=== PATIENT | male | born 1980 | race African-American/Black ===

== ENCOUNTER 2019-05-29 22:30 | Emergency (ER) | payer OTHER ==
[2019-05-29 22:38] VITALS: TEMP 98; BMI 35.7
--- NOTE | 2019-05-29 23:06 | PDOC ---
Attending Attestation - Resident Resident Name: Terrence Manley - ED Attending Attestation I have performed the following: I have examined & evaluated the patient, The case was reviewed & discussed with the resident, I agree w/resident's findings & plan - HPI HPI: 05/29/19 23:05 lightheadedness started this afternoon. 05/29/19 23:34 Pt ate a bagel and a chicken sandwich. 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 - Physicial Exam PE: 05/29/19 23:35 Normal Exam. - Medical Decision Making 05/29/19 23:21 BP is 159/99 05/30/19 02:49 CBC normal Chem hemolyzed; 2nd specimen still pending Pt's CXR has borderline ccardiomegaly. Once chem is back, pt can go and follow with cardiology outpatient. Heart Score/ECG Review - ECG Intrepretation Rhythm: Regular Rhythm - [place]: Normal - P and NC Prominent R with upright T in V1 (true posterior WI): No Delta Wave(s) Present: No WPW: No - QRS Poor R Wave Progression: No Q Wave Present: No - ST and T Early Repolarization: No Non Specific ST-T Wave changes: No Flattened T Waves: No Prolonged Q-T Interval: No - ECG Impressions Normal ECG: Yes Non-specific ST Elevation: No Ischemic Changes: No Bradycardia: Yes
[2019-05-29] MEDS ORDERED: SODIUM CHLORIDE 0.9% 500 ML INFUS.BAG IV ONE (23:08)
[2019-05-29] MEDS ORDERED: amLODIPine BESYLATE 5 MG TABLET (FP) PO ONE (23:22)
--- NOTE | 2019-05-29 23:22 | PDOC ---
History of Present Illness - General Chief Complaint: Lightheaded Stated Complaint: LIGHTHEADED Time Seen by Provider: 05/29/19 22:38 - History of Present Illness Initial Comments: Ash Teran is a 38 y/o male with PMH significant for HTN, on amlodipine 5 mg QD for the past 4 months, presenting today with lightheadedness and feeling like he was going to pass out earlier today. Denies any LOC. Denies fall. Reports decreased hydration. Ate a bagel and sandwich today. Denies any other complaints. Denies nausea/vomiting. Denies fever/chills. Denies chest pain/ shortness of breath. Denies abdominal pain. Denies dysuria/hematuria. He was seen at his PCP's office on last week and was told his BP was slightly low. SocHx: daily smoker PMH: htn FamHx: htn Past History - Past Medical History Allergies/Adverse Reactions: Allergies Allergy/AdvReac Type Severity Reaction Status Date / Time shellfish derived Allergy Verified 05/29/19 22:38 COPD: No HTN: Yes - Psycho Social/Smoking Cessation Hx Smoking History: Current every day smoker Information on smoking cessation initiated: No Review of Systems - Review of Systems Comments:: GENERAL/CONSTITUTIONAL: No fever or chills. No weakness._ HEAD, EYES, EARS, NOSE AND THROAT: No change in vision. No change in hearing. No sore throat._ CARDIOVASCULAR: No chest pain or shortness of breath_ RESPIRATORY: Denies cough, hemoptysis_ GASTROINTESTINAL: No nausea, vomiting, diarrhea or constipation._ GENITOURINARY: No dysuria, frequency, or change in urination._ MUSCULOSKELETAL: No joint or muscle swelling or pain. No neck or back pain._ SKIN: No rash_ NEUROLOGIC: Reports mild headache and lightheadedness. No loss of consciousness , or change in strength/sensation._ ENDOCRINE: No increased thirst. No abnormal weight change_ HEMATOLOGIC/LYMPHATIC: No anemia, easy bleeding, or history of blood clots._ ALLERGIC/IMMUNOLOGIC: No hives or skin allergy._ *Physical Exam - Vital Signs Last Vital Signs Temp Pulse Resp BP Pulse Ox 98.0 F 83 18 159/97 97 05/29/19 22:34 05/29/19 22:34 05/29/19 22:34 05/29/19 22:34 05/29/19 22:34 - Physical Exam GENERAL: Awake, alert, and oriented to person/place/time, in no acute distress_ HEAD: No signs of trauma, normocephalic, atraumatic _ EYES: PERRLA, EOMI, sclera anicteric, conjunctiva clear_ ENT: Hearing grossly normal, nares patent, oropharynx clear without exudates. No uvular deviation. Moist mucosa_ NECK: Normal ROM, supple, no lymphadenopathy, JVD, or masses_ LUNGS: No distress, speaks in full sentences, clear to auscultation bilaterally _ HEART: Regular rate and rhythm, normal S1 and S2, no murmurs appreciated, peripheral pulses normal and equal bilaterally._ ABDOMEN: Soft, nontender, normoactive bowel sounds. No guarding, no rebound. No masses_ EXTREMITIES: Normal inspection, Normal range of motion, no edema. No clubbing or cyanosis_ NEUROLOGICAL: Cranial nerves II through XII grossly intact. Normal speech, normal gait, no focal sensorimotor deficits _ SKIN: Warm, Dry, normal turgor, no rashes or lesions noted_ ED Treatment Course - LABORATORY CBC & Chemistry Diagram: 05/29/19 23:05 05/30/19 02:11 Medical Decision Making - Medical Decision Making 05/29/19 23:21 38M hx of HTN presenting today with lightheadedness and feeling like he was going to pass out. -cbc, cmp -ekg -cxr -fluids 05/30/19 00:58 EKG shows sinus bradycardia with sinus arrhythmia, 58 bpm, no ST elevation/ depression, QTc 414. 05/30/19 02:49 CXR shows mild borderline cardiomegaly. 05/30/19 03:12 Labs reviewed. Laboratory Last Values WBC 7.4 K/mm3 (4.0-10.0) 05/29/19 23:05 RBC 5.90 M/mm3 (4.00-5.60) H 05/29/19 23:05 Hgb 15.6 GM/dL (11.7-16.9) 05/29/19 23:05 Hct 47.4 % (35.4-49) 05/29/19 23:05 MCV 80.3 fl (80-96) 05/29/19 23:05 MCH 26.5 pg (25.7-33.7) 05/29/19 23:05 MCHC 33.0 g/dl (32.0-35.9) 05/29/19 23:05 RDW 15.9 % (11.9-15.9) 05/29/19 23:05 Plt Count 246 K/MM3 (134-434) 05/29/19 23:05 MPV 8.5 fl (7.5-11.1) 05/29/19 23:05 Absolute Neuts (auto) 3.9 K/mm3 (1.5-8.0) 05/29/19 23:05 Neutrophils % 52.9 % (42.8-82.8) 05/29/19 23:05 Lymphocytes % 40.8 % (8-40) H 05/29/19 23:05 Monocytes % 4.9 % (3.8-10.2) 05/29/19 23:05 Eosinophils % 0.6 % (0-4.5) 05/29/19 23:05 Basophils % 0.8 % (0-2.0) 05/29/19 23:05 Nucleated RBC % 0 % (0-0) 05/29/19 23:05 Sodium 140 mmol/L (136-145) 05/30/19 02:11 Potassium 3.7 mmol/L (3.5-5.1) 05/30/19 02:11 Chloride 108 mmol/L (98-107) H 05/30/19 02:11 Carbon Dioxide 29 mmol/L (21-32) 05/30/19 02:11 Anion Gap 3 MMOL/L (8-16) L 05/30/19 02:11 BUN 9.8 mg/dL (7-18) 05/30/19 02:11 Creatinine 1.1 mg/dL (0.55-1.3) 05/30/19 02:11 Est GFR (CKD-EPI)AfAm 98.87 05/30/19 02:11 Est GFR (CKD-EPI)NonAf 85.31 05/30/19 02:11 Random Glucose 99 mg/dL (74-106) 05/30/19 02:11 Calcium 8.1 mg/dL (8.5-10.1) L 05/30/19 02:11 Total Bilirubin 0.4 mg/dL (0.2-1) 05/30/19 02:11 AST 16 U/L (15-37) 05/30/19 02:11 ALT 22 U/L (13-61) 05/30/19 02:11 Alkaline Phosphatase 84 U/L (45-117) 05/30/19 02:11 Total Protein 7.2 g/dl (6.4-8.2) 05/30/19 02:11 Albumin 3.5 g/dl (3.4-5.0) 05/30/19 02:11 Urine Color Yellow 05/30/19 00:30 Urine Appearance Clear 05/30/19 00:30 Urine pH 5.5 (5.0-8.0) 05/30/19 00:30 Ur Specific [place] 1.008 (1.010-1.035) L 05/30/19 00:30 Urine Protein Negative (NEGATIVE) 05/30/19 00:30 Urine Glucose (UA) Negative (NEGATIVE) 05/30/19 00:30 Urine Ketones Negative (NEGATIVE) 05/30/19 00:30 Urine Blood Negative (NEGATIVE) 05/30/19 00:30 Urine Nitrite Negative (NEGATIVE) 05/30/19 00:30 Urine Bilirubin Negative (NEGATIVE) 05/30/19 00:30 Urine Urobilinogen 0.2 mg/dL (0.2-1.0) 05/30/19 00:30 Ur Leukocyte Esterase Negative (NEGATIVE) 05/30/19 00:30 Pt reassessed. Reports improvement. Plan to d/c home with PCP f/u. All questions answered. Return precautions given. Pt verbalized understanding and agreement with plan. Discharge - Discharge Information Problems reviewed: Yes Clinical Impression/Diagnosis: Lightheadedness Condition: Stable Disposition: HOME - Admission No - Follow up/Referral Referrals: Anibal Zaidi MD [Staff Physician] - - Patient Discharge Instructions Patient Printed Discharge Instructions: Treatments for High Blood Pressure: More Than Just Taking a Pill, Recommendations to Help Prevent High Blood Pressure Additional Instructions: Please make a follow up appointment with your primary care doctor. Please follow a low sodium diet to improve your blood pressure. If you experience any new, worsening, or concerning symptoms, including fainting , severe headache, chest pain, shortness of breath, or any other concerns, please return to the emergency department. - Post Discharge Activity
[2019-05-29 23:27] LABS: BASO % 0.8 % (0-2.0); EOS % 0.6 % (0-4.5); HEMATOCRIT 47.4 % (35.4-49); HEMOGLOBIN 15.6 GM/dL (11.7-16.9); LYMPH % 40.8 % (8-40); MCH 26.5 pg (25.7-33.7); MEAN CELL VOLUME 80.3 fl (80-96); MEAN PLT VOLUME 8.5 fl (7.5-11.1); MONO % 4.9 % (3.8-10.2); NEUT % 52.9 % (42.8-82.8); PLATELET COUNT 246 K/MM3 (134-434); RDW 15.9 % (11.9-15.9); WHITE BLOOD COUNT 7.4 K/mm3 (4.0-10.0)
[2019-05-30] MEDS ORDERED: VALSARTAN 40 MG TABLET (FP) PO ONE (00:23)
[2019-05-30 01:15] LABS: PH,URINE 5.5 (5.0-8.0); URINE APPEARANCE CLEAR; URINE BILIRUBIN NEGATIVE (NEGATIVE); URINE COLOR YELLOW; URINE GLUCOSE (UA) NEGATIVE (NEGATIVE); URINE KETONE NEGATIVE (NEGATIVE); URINE LEUK ESTERASE NEGATIVE (NEGATIVE); URINE NITRITE NEGATIVE (NEGATIVE); URINE PROTEIN NEGATIVE (NEGATIVE); URINE UROBILINOGEN 0.2 mg/dL (0.2-1.0)
[2019-05-30 02:51] LABS: ALBUMIN 3.5 g/dl (3.4-5.0); BILIRUBIN,TOTAL 0.4 mg/dL (0.2-1); BLOOD UREA NITROGEN 9.8 mg/dL (7-18); CALCIUM 8.1 mg/dL (8.5-10.1); CREATININE 1.1 mg/dL (0.55-1.3); POTASSIUM 3.7 mmol/L (3.5-5.1); TOT PROT 7.2 g/dl (6.4-8.2)
[2019-05-30 03:22] VITALS: BP 136/92; PULSE 68
--- NOTE | 2019-05-30 13:24 | EKG ---
Test Reason : Blood Pressure : / mmHG Vent. Rate : 058 BPM Atrial Rate : 058 BPM P-R Int : 182 ms QRS Dur : 094 ms QT Int : 422 ms P-R-T Axes : 058 051 040 degrees QTc Int : 414 ms SINUS BRADYCARDIA WITH SINUS ARRHYTHMIA NONSPECIFIC INTRAVENTRICULAR CONDUCTION DEFECT NO PREVIOUS ECGS AVAILABLE Confirmed by WESTON LOPEZ MD ([id number]) on 05/30/2019 1:24:21 PM Referred By: Confirmed By:WESTON LOPEZ MD
== END 2019-05-30 03:23 | disposition home or self-care (01) ==
LOC: JER 22:30
PROC: 3E0337Z Introduction of Electrolytic and Water Balance Substance into Peripheral Vein, Percutaneous Approach (ICD-10-PCS; principal; 2019-05-29)
DX: R42 Dizziness and giddiness (principal); Z91.013 Allergy to seafood; I10 Essential (primary) hypertension
CPT/HCPCS: 36415; 71046-TC-FY; 80053; 81003; 85025; 93005; 93010; 99285-25